=== PATIENT | female | born 1940 | race Caucasian/White ===

== ENCOUNTER 2018-01-16 17:13 | Observation (INO) ==
[2018-01-16] MEDS ORDERED: SALINE FLUSH 10ml SYRINGE IVF PRN (17:40)
--- NOTE | 2018-01-16 18:21 | Emergency Department Report ---
General Adult HPI - General Chief complaint: Arrhythmia/Palpitations Stated complaint: A-Fib Time Seen by Provider: 01/16/18 17:39 Source: patient Mode of arrival: ambulatory Limitations: no limitations - History of Present Illness HPI narrative: 77-year-old female presents to the emergency department with the chief complaint of heart palpitations. She has been feeling her heart beating irregularly for the past 7-10 days. She denies any pain or discomfort. She was at home when her symptoms began. Symptoms have been persistent in nature since onset. No other complaints or associated symptoms. She does note know any exacerbating or remitting factors. - Related Data Home Medications Medication Instructions Recorded Confirmed Calcium 500 + D [[place]-D 500] 1 tab PO DAILY 01/16/18 01/16/18 [facility] Tab 1 tab PO BID 01/16/18 01/16/18 Allergies Allergy/AdvReac Type Severity Reaction Status Date / Time No Known Allergies Allergy Unverified 02/07/15 13:45 Review of Systems Constitutional: Denies: fever, chills Eyes: Denies: eye pain, vision change ENT: Denies: ear pain, throat pain Cardiovascular: Reports: palpitations. Denies: chest pain Respiratory: Denies: cough, dyspnea, wheezes, hemoptysis Gastrointestinal: Denies: abdominal pain, nausea, vomiting, diarrhea Genitourinary: Denies: urgency, dysuria Musculoskeletal: Denies: back pain, arthralgia Integumentary: Denies: erythema, rash Neurological: Denies: headache, numbness, paresthesias Psychiatric: Denies: anxiety, depression Endocrine: Denies: fatigue, heat or cold intolerance Hematological/Lymphatic: Denies: easy bruising, lymphadenopathy Allergic/Immunologic: Denies: facial swelling, urticaria PFSH Negative per patient. Surgical History: Hernia repair Family History: Reviewed and noncontributory - Social History Smoking status: Never smoker Substance use type: does not use Alcohol intake frequency: does not drink Physical Exam - Limitations Limitations: no limitations - General General appearance: alert, in no apparent distress - Normal Exams: Head:: Normocephalic without trauma Eyes:: Pupils are PERRLA w/ EOMI, No scleral icterus, irritation, or foreign bodies noted ENMT:: No facial trauma, nasal exudates, pharyngeal erythema, or exudates are noted Dental: No fractured, loose, or missing teeth noted Neck:: Full range of motion, without adenopathy, JVD, bruits or thyromegaly Chest/Respirations:: Clear all lester, with good airflow, and symmetry bilaterally Cardiovascular:: without murmur or gallop (irregularly irregular rhythm.), Pulses 2+ all extremities, capillary refill, <2 seconds all extremities Abdomen:: Bowel sounds positive, soft, non-tender, non-distended, no hepatosplenomegaly, masses or bruits noted Lymphatic:: No lymphadenopathy, or lymphedema noted Musculoskeletal:: No tenderness, or deformity noted, good range of motion, all extremities Integumentary:: No rashes, hives, or bruising noted, hair and nails, without abnormality Neurological:: Patient is alert, and oriented, cranial nerves, motor/sensory/ cerebellar, exams w/o gross deficits, to observation Psychiatric:: Patient exhibits, appropriate attention, emotion and affect Course Vital Signs Temperature 98.4 F 01/16/18 17:15 Pulse Rate 139 H 01/16/18 17:15 Respiratory Rate 18 01/16/18 17:15 Blood Pressure 133/92 H 01/16/18 17:15 Pulse Oximetry 99 01/16/18 17:15 Temperature 96.7 F L 01/16/18 20:25 Pulse Rate 98 01/16/18 20:25 Respiratory Rate 20 01/16/18 20:25 Blood Pressure 142/75 H 01/16/18 20:25 Pulse Oximetry 98 01/16/18 20:25 Medical Decision Making - MDM Narrative Medical decision making narrative: Labs / imaging was discussed in detail with the patient and questions are answered. Patient is given Lopressor 5 mg IV 1 with rate control. She is maintaining her pulse rate less than 120 beats per minutes. At time of discussion with Dr. Gonzalez for admission she is at 96-104 bpm. She is given Lovenox 1 mg/kg subcutaneously 1 in the emergency department. She will be admitted to telemetry at this time for further evaluation from cardiology. Dr. Gonzalez is in agreement with the current plan of management. She is admitted to the hospital in improved condition. She is in agreement with the current plan of management. No further orders from accepting physician who is in agreement with the current plan of management. Dr. Gonzalez agrees to admit the patient to his service for further evaluation and treatment. - Differential Diagnosis atrial fibrillation, a flutter, metabolic disorder, dehydration - Lab Data Result diagrams: 01/16/18 18:24 01/16/18 18:24 Lab Results 01/16/18 01/16/18 01/16/18 Range/Units 18:11 18:24 18:24 WBC 5.1 (4.5-11.0) T/MM3 RBC 4.23 (4.00-5.20) M/MM3 Hgb 13.4 (12-16) GM/DL Hct 41.0 (36-46) % MCV 96.9 (80-100) UM3 MCH 31.7 (26-34) UUG MCHC 32.7 (31-37) GM/DL RDW Std Deviation 45.7 (36.9-50.2) FL Plt Count 294 (130-400) T/MM3 MPV 10.5 (9.4-12.4) UM3 Immature Gran % (Auto) 0.2 (0.0-0.5) % Neut % (Auto) 61.1 (33-66) % Lymph % (Auto) 28.1 (23-45) % [place] % (Auto) 9.6 H (0-9.0) % Eos % (Auto) 0.6 (0-4) % Baso % (Auto) 0.4 (0-2) % Neut # (Auto) 3.1 (1.8-7.7) T/MM3 Lymph # (Auto) 1.4 (1-4.8) T/MM3 [place] # (Auto) 0.5 (0-0.8) T/MM3 Eos # (Auto) 0.0 (0-0.5) T/MM3 Baso # (Auto) 0.0 (0-0.2) T/MM3 Abs Immat Gran (auto) 0.01 (0.00-0.03) T/MM3 INR 1.09 (0.92-1.18) Turbidity (0-20) Sodium (134-144) MEQ/L Potassium (3.6-5) MEQ/L Chloride (98-107) MEQ/L Carbon Dioxide (22-30) MEQ/L Anion Gap (5-15) meq/L BUN (7-17) MG/DL Creatinine (0.7-1.2) mg/dL GFR Calculation BUN/Creatinine Ratio (6-26) RATIO Glucose (65-110) MG/DL Calculated Osmolality (261-280) MOSM/KG Calcium (8.4-10.2) MG/DL Magnesium 2.2 (1.6-2.3) MG/DL Total Bilirubin (0.20-1.30) MG/DL Icterus Index (0-7) AST (14-36) U/L ALT (1-35) U/L Alkaline Phosphatase (38-126) U/L Troponin I (0-0.12) ng/ml NT-Pro-B Natriuret Pep (0-175) pg/mL Total Protein (6.3-8.2) g/dL Albumin (3.5-5.0) g/dL Globulin (2.4-3.6) G/DL Albumin/Globulin Ratio (1.1-2.2) RATIO TSH (0.47-4.68) mIU/L Specimen Hemolysis (0-25) 01/16/18 01/16/18 Range/Units 18:24 18:24 WBC (4.5-11.0) T/MM3 RBC (4.00-5.20) M/MM3 Hgb (12-16) GM/DL Hct (36-46) % MCV (80-100) UM3 MCH (26-34) UUG MCHC (31-37) GM/DL RDW Std Deviation (36.9-50.2) FL Plt Count (130-400) T/MM3 MPV (9.4-12.4) UM3 Immature Gran % (Auto) (0.0-0.5) % Neut % (Auto) (33-66) % Lymph % (Auto) (23-45) % [place] % (Auto) (0-9.0) % Eos % (Auto) (0-4) % Baso % (Auto) (0-2) % Neut # (Auto) (1.8-7.7) T/MM3 Lymph # (Auto) (1-4.8) T/MM3 [place] # (Auto) (0-0.8) T/MM3 Eos # (Auto) (0-0.5) T/MM3 Baso # (Auto) (0-0.2) T/MM3 Abs Immat Gran (auto) (0.00-0.03) T/MM3 INR (0.92-1.18) Turbidity < 20 (0-20) Sodium 143 (134-144) MEQ/L Potassium 4.7 (3.6-5) MEQ/L Chloride 109 H (98-107) MEQ/L Carbon Dioxide 21 L (22-30) MEQ/L Anion Gap 13 (5-15) meq/L BUN 18.0 H (7-17) MG/DL Creatinine 0.8 (0.7-1.2) mg/dL GFR Calculation 69 BUN/Creatinine Ratio 23 (6-26) RATIO Glucose 115 H (65-110) MG/DL Calculated Osmolality 278 (261-280) MOSM/KG Calcium 9.5 (8.4-10.2) MG/DL Magnesium 2.1 (1.6-2.3) MG/DL Total Bilirubin 0.50 (0.20-1.30) MG/DL Icterus Index < 2 (0-7) AST 42 H (14-36) U/L ALT 19 (1-35) U/L Alkaline Phosphatase 97 (38-126) U/L Troponin I < 0.012 (0-0.12) ng/ml NT-Pro-B Natriuret Pep 917 H (0-175) pg/mL Total Protein 9.0 H (6.3-8.2) g/dL Albumin 4.7 (3.5-5.0) g/dL Globulin 4.3 H (2.4-3.6) G/DL Albumin/Globulin Ratio 1.1 (1.1-2.2) RATIO TSH 16.50 H (0.47-4.68) mIU/L Specimen Hemolysis 113 H (0-25) - Radiology Data Chest x-ray: No acute processes. - EKG Data EKG #1 EKG results narrative: Atrial fibrillation with RVR. 139 bpm. No STEMI. Disposition Clinical Impression: A-FIB Disposition: 02 To [facility] Acute Care Condition: Stable Time of Disposition: 18:20 - Seen By: physician
[2018-01-16] MEDS ORDERED: METOPROLOL 5mg/5ml INJECTION IVP ONE (19:26)
[2018-01-16] MEDS ORDERED: ENOXAPARIN 80 MG/0.8 ML INJECTION SQ SCH (19:30)
[2018-01-16 20:22] VITALS: BMI 25.4
[2018-01-16] MEDS ORDERED: ZOLPIDEM 5 MG TABLET PO PRN (21:40)
[2018-01-16] MEDS ORDERED: NITROGLYCERIN 0.4 MG SUBLINGUAL TABLET SL PRN (21:40)
[2018-01-16] MEDS ORDERED: ONDANSETRON 4 MG/2 ML INJECTION IVP PRN (21:40)
[2018-01-16] MEDS ORDERED: ACETAMINOPHEN 325 MG TABLET PO SCH (21:45)
[2018-01-16] MEDS ORDERED: ACETAMINOPHEN 325 MG TABLET PO PRN (21:59)
[2018-01-16] MEDS ORDERED: DiltiaZEM Drip 125 MG in NS 125 ML IV SCH (22:15)
--- NOTE | 2018-01-17 08:02 | XRay Report ---
INDICATION: new onset a fib PROCEDURE: CHEST 2-VIEWS UPRIGHT (PA & LAT) Encounter: Initial COMPARISON: None FINDINGS: The lungs are clear without evidence of focal abnormal airspace opacity. There is no pleural effusion or pneumothorax. The heart size, mediastinal contours and pulmonary vascularity are within normal limits. There is no significant skeletal abnormality. IMPRESSION: No acute cardiopulmonary disease. .
[2018-01-17] MEDS ORDERED: ENOXAPARIN 80 MG/0.8 ML INJECTION SQ SCH (09:00)
[2018-01-17] MEDS ORDERED: RIVAROXABAN 20 MG TABLET PO SCH (09:00)
--- NOTE | 2018-01-17 09:38 | Cardiology History & Physical ---
History of Present Illness Chief complaint: Atrial Fibrillation HPI: Pt is a 77 year old female with no significant PMH that presented to the ER yesterday after experiencing increased heart palpitations and rapid heart rate over the past week. Pt denies any chest pain, palpitations, dizziness, or near syncope. Pt states nothing makes her symptoms worse, but states her palpitations will sometimes "settle down" when she sits down to rest. Pt states she decided to come to the hospital yesterday after playing bridge because her palpitations have been increasing and have kept her from sleeping. Upon arrival to the ED, pt was found to be in A-fib with HR in the 130s. Pt was started on Cardizem gtt. EKG today indicates Atrial Fibrillation with HR in the 80s-90s and patient reports continued, occasional palpitations. Review of Systems - Constitutional Constitutional: Absent: chills, fever(s) - EENMT Eyes: Absent: change in vision Balance: Absent: vertigo Nose: Present: obstruction Mouth/Throat: Absent: sore throat - Cardiovascular Cardiovascular: Present: palpitations. Absent: chest pain, syncope, dyspnea on exertion, orthopnea, edema, heart murmur Rhythm: Present: abnormal rhythm Vascular: Absent: intermittent claudication, pedal edema - Respiratory Respiratory: Absent: cough, dyspnea, dyspnea on exertion, chest congestion - Gastrointestinal Gastrointestinal: Absent: abdominal pain, diarrhea, nausea, vomiting - Integumentary/Breasts Integumentary: Absent: rash - Neurological Neurological: Absent: abnormal speech, memory loss, vertigo - Psychiatric Psychiatric: Absent: anxiety, depression - Endocrine Endocrine: Present: palpitations - Hematologic/Lymphatic Hematologic/Lymphatic: Absent: easy bruising PFSH HLD Surgical History: Hernia repair Family History: Mother - HTN Daughter - Thyroid disease - Social History Smoking status: Never smoker Substance use type: does not use Alcohol intake frequency: does not drink 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 Medications Home Medications Medication Instructions Recorded Confirmed Type Calcium 500 + D [[place]-D 500] 1 tab PO DAILY 01/16/18 01/16/18 History [facility] Tab 1 tab PO BID 01/16/18 01/16/18 History Levothyroxine Tab [Synthroid] 25 mcg PO ACB #30 tab 01/18/18 Rx Metoprolol Tartrate [Lopressor] 12.5 mg PO BIDWM #60 tab 01/18/18 Rx Rivaroxaban [Xarelto] 15 mg PO WS #30 tab 01/18/18 Rx Allergies Allergy/AdvReac Type Severity Reaction Status Date / Time No Known Allergies Allergy Unverified 02/07/15 13:45 Exam Vital signs: Temperature 98.3 F 01/17/18 07:00 Pulse Rate 89 01/17/18 07:51 Respiratory Rate 29 H 01/17/18 07:00 Blood Pressure 119/57 01/17/18 07:00 Pulse Oximetry 100 01/17/18 07:00 - Constitutional no acute distress, well nourished - Routine HEENT Exam Head: Present: normocephalic, atraumatic Eye: Present: EOMI, PERRL ENT: Present: mucous membranes moist - Routine Neck Exam Present: supple, trachea midline. Absent: JVD, carotid bruit - Routine Chest/Breast/Axilla Exam Chest wall: Absent: tenderness - Routine Respiratory Exam Present: CTA bilaterally. Absent: accessory muscle use, dyspnea - Routine Cardiovascular Exam Present: no murmur, irregularly irregular. Absent: JVD - Routine Abdominal Exam Present: soft, normoactive bowel sounds, non tender - Routine Extremities Exam Present: no edema - Routine Skin Exam Present: intact, dry, warm - Routine Neurological Exam Present: alert, oriented X3 - Routine Psychiatric Exam Present: normal affect, normal thought process Results 01/18/18 04:14 01/18/18 04:14 Cardiac Enzymes 01/17/18 Range/Units 04:32 AST 28 (14-36) U/L Lipids 01/17/18 Range/Units 04:32 Triglycerides 102 (35-135) mg/dL Cholesterol 164 (132-199) mg/dL HDL Cholesterol 46 (40-60) mg/dL Cholesterol/HDL Ratio 3.6 (0-4.0) RATIO CBC 01/17/18 Range/Units 04:32 WBC 5.6 (4.5-11.0) T/MM3 RBC 4.04 (4.00-5.20) M/MM3 Hgb 12.9 (12-16) GM/DL Hct 39.4 (36-46) % Plt Count 277 (130-400) T/MM3 Neut # (Auto) 2.6 (1.8-7.7) T/MM3 Lymph # (Auto) 2.1 (1-4.8) T/MM3 [place] # (Auto) 0.6 (0-0.8) T/MM3 Eos # (Auto) 0.1 (0-0.5) T/MM3 Baso # (Auto) 0.0 (0-0.2) T/MM3 Comprehensive Metabolic Panel 01/17/18 Range/Units 04:32 Sodium 144 (134-144) MEQ/L Potassium 4.1 (3.6-5) MEQ/L Chloride 109 H (98-107) MEQ/L Carbon Dioxide 24 (22-30) MEQ/L BUN 16.0 (7-17) MG/DL Creatinine 0.8 (0.7-1.2) mg/dL Glucose 103 (65-110) MG/DL Calcium 8.9 (8.4-10.2) MG/DL AST 28 (14-36) U/L ALT 15 (1-35) U/L Alkaline Phosphatase 72 (38-126) U/L Total Protein 7.4 (6.3-8.2) g/dL Albumin 3.8 (3.5-5.0) g/dL Intake and Output 01/16/18 01/17/18 01/17/18 22:59 06:59 14:59 Intake Total 200 / 200 32.417 / 32.417 5 / 5 Output Total 300 / 300 Balance 200 / 200 -267.583 / -267.583 5 / 5 Intake: IV 32.417 / 32.417 5 / 5 DiltiaZEM Drip 125 mg In Ns 125 32.417 / 32.417 5 / 5 ml @ 5 mls/hr IV .Q24H [facility] Rx# :[id number] Oral 200 / 200 Output: Urine 300 / 300 Other: Urine Appearance Clear Urine Color Pale Yellow # Voids 1 Weight 67.3 kg 67.1 kg Patient Weight 01/18/18 06:59 Weight 67.1 kg - Imaging and Cardiology Echo: pending - EKG Interpretation EKG shows: atrial fibrillation EKG interpretations - EKG EKG shows: atrial fibrillation Hospital Course This is a general summary of the patient's hospital course. For more details refer to the complete medical record. Time spent with patient: 25 - 35 minutes Resuscitation Status: Full Code Assessment and Plan - Assessment and Plan (1) Atrial fibrillation Status: Acute (2) Hypothyroidism Status: Chronic - Assessment and Plan Atrial Fibrillation - EKG: A-Fib, HR 80s-90s - NT-Pro-BNP 1050 - Echo Pending - CXR: no acute cardiopulmonary disease - Start metoprolol 12.5 PO BID and d/c Cardizem gtt 1 hour after 1st metoprolol given - Will d/c SQ Lovenox and start Xarelto 20 mg PO daily - Check lipids in the am - Will see pt back in office in 3-4 weeks to discuss possible cardioversion Hypothyroidism - TSH 20.30 - Start synthroid 25 mcg PO daily - Follow up with PCP in 6-8 weeks for follow up labs
[2018-01-17] MEDS: LEVOTHYROXINE 25 MCG TABLET PO SCH (11:17)
--- NOTE | 2018-01-17 17:25 | Echocardiogram ---
DATE OF PROCEDURE January 17, 2018 This is a two-dimensional echo with spectral Doppler, color-flow and M-mode. It was obtained in a patient with atrial fibrillation. Left atrium appears to be dilated. Left ventricular end-diastolic dimension is normal. Left ventricular wall thickness is normal. LV systolic function is normal with ejection fraction of 54%. Right atrium is normal. Right ventricle is normal. Aortic root dimension is normal. Mitral valve is morphologically normal with mild mitral regurgitation. Aortic valve shows mild fibrocalcific changes with no stenosis. Mild aortic insufficiency is present. Tricuspid valve shows mild tricuspid regurgitation with mild pulmonary hypertension with estimated pulmonary artery systolic pressure of 40. Pulmonary valve shows no pulmonary insufficiency. There is no pericardial effusion. The patient was in atrial fibrillation during the exam. IMPRESSION 1. Normal LV systolic function with ejection fraction of about 54%. 2. Left atrial dilation. 3. Mild mitral regurgitation. 4. Aortic sclerosis with mild aortic insufficiency. 5. Mild tricuspid regurgitation with mild pulmonary hypertension with estimated pulmonary artery systolic pressure of 40. MTDD
[2018-01-17] MEDS ORDERED: RIVAROXABAN 15 MG TABLET PO SCH (17:30)
[2018-01-17 19:48] VITALS: RESP 16
[2018-01-18] MEDS: LEVOTHYROXINE 25 MCG TABLET PO SCH (06:12)
[2018-01-18 08:04] VITALS: BP 126/79; PULSE 78; TEMP 96.8; O2SAT 98
--- NOTE | 2018-01-18 10:19 | Discharge Summary ---
<Ashely Macedo - Last Filed: 01/19/18 09:08> Discharge Information Date of admission: 01/16/18 19:55 Anticipated date of discharge: 01/18/18 (Stable) Attending Physician: Win Gonzalez MD Primary care physician: Dian Padilla, DO - Discharge Diagnosis (1) Atrial fibrillation Status: Acute (2) Hypothyroidism Status: Chronic Atrial Fibrillation Aortic Sclerosis Pulmonary Hypertension Hypothyroidism - Laboratory Labs: 01/18/18 04:14 01/18/18 04:14 - Radiology Radiology: [place] [address] XRay Report Signed Patient: Jess Styles MR#: [id number] : 1940 Age/Sex: 77 / F ADM Date: 01/16/18 Loc: CCU 1-P DIS Date: = = = = = = = = = = = = = = = = = = = = = = = = = = = = = = = = = = = = = = = = = = = = = = = = = = = = = = = = = = = Date of Exam: 01/16/18 Ordering Provider: Cassidy Benitez APRN Type of Exam(s): XR chest 2V Reason for Exam(s): new onset a fib INDICATION: new onset a fib PROCEDURE: CHEST 2-VIEWS UPRIGHT (PA & LAT) Encounter: Initial COMPARISON: None FINDINGS: The lungs are clear without evidence of focal abnormal airspace opacity. There is no pleural effusion or pneumothorax. The heart size, mediastinal contours and pulmonary vascularity are within normal limits. There is no significant skeletal abnormality. IMPRESSION: No acute [place] [address] Echocardiogram Draft Patient: Jess Styles MR#: [id number] : 1940 Age/Sex: 77 / F ADM Date: 01/16/18 Loc: MED 155-P DIS Date: = = = = = = = = = = = = = = = = = = = = = = = = = = = = = = = = = = = = = = = = = = = = = = = = = = = = = = = = = = = Date of Exam: 01/17/18 Type of Exam(s): US echo doppler complete DATE OF PROCEDURE January 17, 2018 This is a two-dimensional echo with spectral Doppler, color-flow and M-mode. It was obtained in a patient with atrial fibrillation. Left atrium appears to be dilated. Left ventricular end-diastolic dimension is normal. Left ventricular wall thickness is normal. LV systolic function is normal with ejection fraction of 54%. Right atrium is normal. Right ventricle is normal. Aortic root dimension is normal. Mitral valve is morphologically normal with mild mitral regurgitation. Aortic valve shows mild fibrocalcific changes with no stenosis. Mild aortic insufficiency is present. Tricuspid valve shows mild tricuspid regurgitation with mild pulmonary hypertension with estimated pulmonary artery systolic pressure of 40. Pulmonary valve shows no pulmonary insufficiency. There is no pericardial effusion. The patient was in atrial fibrillation during the exam. IMPRESSION 1. Normal LV systolic function with ejection fraction of about 54%. 2. Left atrial dilation. 3. Mild mitral regurgitation. 4. Aortic sclerosis with mild aortic insufficiency. 5. Mild tricuspid regurgitation with mild pulmonary hypertension with estimated pulmonary artery systolic pressure of 40. History of Present Illness HPI: Pt is a 77 year old female with no significant PMH that presented to the ER yesterday after experiencing increased heart palpitations and rapid heart rate over the past week. Pt denies any chest pain, palpitations, dizziness, or near syncope. Pt states nothing makes her symptoms worse, but states her palpitations will sometimes "settle down" when she sits down to rest. Pt states she decided to come to the hospital yesterday after playing bridge because her palpitations have been increasing and have kept her from sleeping. Upon arrival to the ED, pt was found to be in A-fib with HR in the 130s. Pt was started on Cardizem gtt. EKG today indicates Atrial Fibrillation with HR in the 80s-90s and patient reports continued, occasional palpitations. Hospital Course This is a general summary of the patient's hospital course. For more details refer to the complete medical record. Time spent with patient: 25 - 35 minutes Resuscitation Status: Full Code Exam Vital signs: Temperature 96.8 F 01/18/18 08:00 Pulse Rate 78 01/18/18 08:00 Respiratory Rate 16 01/18/18 08:00 Blood Pressure 126/79 01/18/18 08:00 Pulse Oximetry 98 01/18/18 08:00 - Constitutional no acute distress, well nourished, cooperative - Routine HEENT Exam Head: Present: normocephalic, atraumatic Eye: Present: PERRL ENT: Present: mucous membranes moist - Routine Neck Exam Present: supple, trachea midline. Absent: JVD, carotid bruit - Routine Chest/Breast/Axilla Exam Chest wall: Absent: tenderness - Routine Respiratory Exam Present: CTA bilaterally - Routine Cardiovascular Exam Present: irregularly irregular. Absent: murmur, JVD - Routine Abdominal Exam Present: soft, normoactive bowel sounds, non tender - Routine Extremities Exam Present: no edema, calf tenderness - Routine Skin Exam Present: intact, dry, warm - Routine Neurological Exam Present: alert, oriented X3, normal speech - Routine Psychiatric Exam Present: normal affect, normal thought process, cooperative Results 01/18/18 04:14 01/18/18 04:14 Lipids 01/18/18 Range/Units 04:14 Triglycerides 118 (35-135) mg/dL Cholesterol 154 (132-199) mg/dL HDL Cholesterol 46 (40-60) mg/dL Cholesterol/HDL Ratio 3.3 (0-4.0) RATIO CBC 01/18/18 Range/Units 04:14 WBC 4.4 L (4.5-11.0) T/MM3 RBC 4.10 (4.00-5.20) M/MM3 Hgb 13.1 (12-16) GM/DL Hct 40.0 (36-46) % Plt Count 289 (130-400) T/MM3 Comprehensive Metabolic Panel 01/18/18 Range/Units 04:14 Sodium 144 (134-144) MEQ/L Potassium 4.4 (3.6-5) MEQ/L Chloride 107 (98-107) MEQ/L Carbon Dioxide 26 (22-30) MEQ/L BUN 13.0 (7-17) MG/DL Creatinine 0.9 (0.7-1.2) mg/dL Glucose 110 (65-110) MG/DL Calcium 8.7 (8.4-10.2) MG/DL Intake and Output 01/17/18 01/18/18 01/18/18 22:59 06:59 14:59 Intake Total 120 / 120 Output Total 600 / 600 300 / 300 Balance -600 / -600 -300 / -300 120 / 120 Intake: Oral 120 / 120 Output: Urine 600 / 600 300 / 300 Other: # Voids 2 1 Weight 68 kg Patient Weight 01/19/18 06:59 Weight 68 kg - Imaging and Cardiology EKG results: image reviewed - EKG Interpretation EKG shows: atrial fibrillation Discharge Plan - Med Rec/Dispo Referrals/Follow Up: Win Gonzalez MD [Physician] - 02/01/18 10:00 am [place] Instructions: A-fib (Atrial Fibrillation) (GEN) Prescriptions: New Levothyroxine Tab [Synthroid] 25 mcg PO ACB #30 tab Metoprolol Tartrate [Lopressor] 12.5 mg PO BIDWM #60 tab Rivaroxaban [Xarelto] 15 mg PO WS #30 tab Continue Calcium 500 + D [[place]-D 500] 1 tab PO DAILY [facility] Tab 1 tab PO BID - Disposition 01 Discharged Home, Self-Care - Dismissal Complete Discharge Instructions are:: Complete <Win Gonzalez - Last Filed: 01/22/18 16:24> Discharge Information Date of admission: 01/16/18 19:55 Attending Physician: Win Gonzalez MD Primary care physician: Dian Padilla, DO - Discharge Diagnosis (1) Atrial fibrillation Status: Acute (2) Hypothyroidism Status: Chronic - Laboratory Labs: 01/18/18 04:14 01/18/18 04:14 Hospital Course This is a general summary of the patient's hospital course. For more details refer to the complete medical record. Exam Vital signs: Temperature 96.8 F 01/18/18 08:00 Pulse Rate 78 01/18/18 08:00 Respiratory Rate 16 01/18/18 08:00 Blood Pressure 126/79 01/18/18 08:00 Pulse Oximetry 98 01/18/18 08:00 Results 01/18/18 04:14 01/18/18 04:14 Attestation Narriative - Attestation Attestation Narrative: 01/22/18 16:24 Recommendation After examining the patient I agree with the above assessment. I am involved in the formulation of the patient's plan of care.
== END 2018-01-18 11:24 | disposition home or self-care (01) ==
LOC: ED 17:13 → SRG 17:13 → CCU 22:25 → MED 01-17 15:50
PROVIDERS: ADMIT Internal Medicine Cardiovascular Disease; ATTEND Internal Medicine Cardiovascular Disease